=== PATIENT | male | born 1965 | race African-American/Black ===

== ENCOUNTER 2016-06-21 02:45 | Emergency (ER) | payer SELFPAY ==
[~2016-06-21] VITALS: Ht 185.4 cm; Wt 91.0 kg
[2016-06-21 02:46] VITALS: BP 142/93; PULSE 122; RESP 24; TEMP 98.8; O2SAT 96
[2016-06-21] MEDS ORDERED: SODIUM CHLOR 0.9% 1000 ML INJ 1,000 ML IV SCH (03:02)
[2016-06-21 03:12] VITALS: O2SAT 98
[2016-06-21] MEDS ORDERED: ONDANSETRON HCL 4 MG/2 ML VIAL IVP ONE (03:15)
[2016-06-21] MEDS ORDERED: SODIUM CHLORIDE 0.9% FLUSH 10 ML FLUSH IV FLUSH PRN (03:15)
[2016-06-21] MEDS ORDERED: MORPHINE SULFATE 8 MG/ML INJ IV PUSH ONE ×2 (03:15→04:45)
[2016-06-21 03:49] LABS: ALKALINE PHOSPHATASE 127 U/L (45-117); TOTAL BILIRUBIN ADULT 1.6 MG/DL (0.2-1.0)
[2016-06-21 03:51] LABS: AUTOMATED NEUTROPHIL # 4.5 TH/MM3 (1.8-7.7); BASOPHIL % 0.3 % (0.0-2.0); EOSINOPHIL % 0.1 % (0.0-4.0); HEMATOCRIT 39.7 % (39.0-51.0); LYMPH % 7.5 % (9.0-44.0); LYMPHOCYTE # 0.4 TH/MM3 (1.0-4.8); MEAN CELL VOLUME 73.3 FL (80.0-100.0); MEAN CORPUSCULAR HEMOGLOBIN 24.5 PG (27.0-34.0); MEAN CORPUSCULAR HGB CONC 33.4 % (32.0-36.0); MONO % 0.7 % (0.0-8.0); NEUT % 91.4 % (16.0-70.0); PLATELET COUNT 76 TH/MM3 (150-450); RED BLOOD COUNT 5.41 MIL/MM3 (4.50-5.90); RED CELL DISTRIBUTION WIDTH 14.3 % (11.6-17.2); WHITE BLOOD COUNT 4.9 TH/MM3 (4.0-11.0)
[2016-06-21 03:55] LABS: ALT (GPT) 101 U/L (12-78); ANION GAP 14 MEQ/L (5-15); AST (GOT) 365 U/L (15-37); BICARBONATE 19.2 MEQ/L (21.0-32.0); BLOOD UREA NITROGEN 19 MG/DL (7-18); CHLORIDE 97 MEQ/L (98-107); GLOMERULAR FILTRATION RATE 26 ML/MIN (>89); POTASSIUM 4.3 MEQ/L (3.5-5.1); SODIUM (NA) 130 MEQ/L (136-145)
[2016-06-21 04:16] LABS: HEMO FLAGS AUTO DIFF
--- NOTE | 2016-06-21 04:39 | RADRPT ---
EXAM DATE/TIME: 06/21/2016 04:17 [place] COMPARISON: No previous studies available for comparison. INDICATIONS : Acute renal insufficiency; abdominal pain. ORAL CONTRAST: No oral contrast ingested. RADIATION DOSE: 9.03 CTDIvol (mGy) MEDICAL HISTORY : None SURGICAL HISTORY : None. ENCOUNTER: Initial ACUITY: 1 day PAIN SCALE: 5/10 LOCATION: abdomen TECHNIQUE: Volumetric scanning of the abdomen and pelvis was performed. Using automated exposure control and ad justment of the mA and/or kV according to patient size, radiation dose was kept as low as reasonably achievable to obtain optimal diagnostic quality images. FINDINGS: Examination degraded by breathing motion artifact. LOWER LUNGS: The visualized lower lungs are clear. LIVER: Homogeneous density without lesion. There is no dilation of the biliary tree. No calcified gallston es. SPLEEN: Normal size without lesion. PANCREAS: Within normal limits. KIDNEYS: Normal in size and shape. There is no mass, stone, or hydronephrosis. There is mild stranding of the perinephric fat bilaterally. This is most pronounced within the upper pole on the left. No fluid col lections. ADRENAL GLANDS: Within normal limits. VASCULAR: There is no aortic aneurysm. BOWEL/MESENTERY: The stomach, small bowel, and colon demonstrate no acute abnormality. There is no free intraperitone al air or fluid. ABDOMINAL WALL: Within normal limits. RETROPERITONEUM: There is no lymphadenopathy. BLADDER: No wall thickening or mass. REPRODUCTIVE: Within normal limits. INGUINAL: There is no lymphadenopathy or hernia. MUSCULOSKELETAL: Within normal limits for patient age. CONCLUSION: 1. Breathing motion artifact degrades the exam. 2. Mild stranding of the perinephric fat most pronounced adjacent to the upper pole on the left. This may be chronic in nature from prior inflammation or infection. I cannot exclude an acute inflammator y process of the left kidney. No stones or hydronephrosis observed. Josh Hansen Jr., MD on June 21, 2016 at 4:33 Board Certified Radiologist. This report was verified electronically.
[2016-06-21 04:45] VITALS: BP 165/85; PULSE 102; RESP 18; O2SAT 98
[2016-06-21] MEDS ORDERED: ATROPINE SULFATE 1 MG/10 ML SYRINGE IV ONE (05:00)
[2016-06-21] MEDS ORDERED: SODIUM BICARBONATE 8.4% INJ 50 MEQ/50 ML SYR IV ONE ×2 (05:00)
[2016-06-21] MEDS ORDERED: EPINEPHrine HCL (1:10,000) 1 MG/10 ML SYRINGE IV ONE (05:00)
[2016-06-21] MEDS ORDERED: CALCIUM CHLORIDE 10% SOLN 1 GRAM/10 ML SYR IV ONE ×2 (05:00)
[2016-06-21] MEDS ORDERED: cefTRIAXone INJ 1,000 MG in SODIUM CHLORIDE 0.9% INJ 100 ML IV ONE (05:00)
[2016-06-21] MEDS ORDERED: DEXTROSE 50% IN WATER 50 ML SYRINGE IV ONE (05:00)
[2016-06-21] MEDS ORDERED: NALOXONE HCL 4 MG/10 ML MDV IV ONE ×2 (05:00)
[2016-06-21] MEDS ORDERED: NOREPINEPHRINE 4 MG/4 ML AMP ONE (05:02)
[2016-06-21] MEDS ORDERED: EPINEPHrine HCL (1:10,000) 1 MG/10 ML SYRINGE ONE ×2 (05:17→05:18)
[2016-06-21] MEDS ORDERED: VASOPRESSIN INJ 20 UNITS/ML VIAL ONE (05:22)
[2016-06-21 06:31] LABS: BLOOD GAS BASE EXCESS -8.2 mmol/L (-2-2); BLOOD GAS HCO3 20 mmol/L (22-26); BLOOD GAS METHEMOGLOBIN 0.7 % (0-2); BLOOD GAS O2 HGB SATURATION 98 % (90-100); BLOOD GAS OXYGEN CONTENT 15.6 Vol % (12.0-20.0); BLOOD GAS PCO2 64 mmHg (38-42); BLOOD GAS PO2 299 mmHG (61-120); BLOOD GAS TOTAL HGB 10.8 G/DL (12.0-16.0); TEMP CORR TO 98.6
[2016-06-21 06:32] LABS: CRITICAL VALUE YES
[2016-06-21 06:33] LABS: DRAW SITE LT FEMORAL; FIO2 100 %; NUMBER OF ARTERIAL PUNCTURES 1
--- NOTE | 2016-06-21 07:20 | PD ---
HPI Chief Complaint: GI Complaint Time Seen by Provider: 02:55 Travel History International Travel<30 days: No Contact w/Intl Traveler<30days: No Traveled to known affect area: No History of Present Illness HPI Patient's 51 years old. He arrives complaining of about 1 day of abdominal pain. He had 2 episodes of diarrhea. He has had no nausea vomiting or fever. Appetite is been decreased. He believes he may have had some bad food with the last oral intake having been crabs. He denies a past medical history no edema. He does not follow currently with a primary care provider. [facility] Past Medical History Medical History: Denies Significant Hx Influenza Vaccination: No Past Surgical History Surgical History: No Previous Surgery Social History Alcohol Use: Yes Tobacco Use: No Substance Use: Yes (marijuana ) Allergies-Medications (Allergen,Severity, Reaction): Coded Allergies: No Known Allergies (Unverified , 06/21/16) Reported Meds & Prescriptions Reported Meds & Active Scripts Active No Active Prescriptions or Reported Medications Review of Systems Except as stated in HPI: all other systems reviewed are Neg General / Constitutional: No: Fever, Chills Cardiovascular: No: Chest Pain or Discomfort Gastrointestinal: Positive: Diarrhea, Abdominal Pain, No: Nausea, Vomiting Physical Exam Narrative GENERAL: 51-year-old male pleasant well-nourished well-developed SKIN: Focused skin assessment warm/dry. HEAD: Atraumatic. Normocephalic. EYES: Pupils equal and round. No scleral icterus. No injection or drainage. ENT: No nasal bleeding or discharge. Mucous membranes pink and moist. NECK: Trachea midline. No JVD. CARDIOVASCULAR: Regular rate and rhythm. No murmur appreciated. RESPIRATORY: No accessory muscle use. Clear to auscultation. Breath sounds equal bilaterally. GASTROINTESTINAL: Soft. Minimal tenderness diffuse nonspecific. MUSCULOSKELETAL: No obvious deformities. No clubbing. No cyanosis. No edema. NEUROLOGICAL: Awake and alert. No obvious cranial nerve deficits. Motor grossly within normal limits. Normal speech. PSYCHIATRIC: Appropriate mood and affect; insight and judgment normal. Data Data Last Documented VS Vital signs normal Orders Complete Blood Count With Diff (06/21/16 03:02) Comprehensive Metabolic Panel (06/21/16 03:02) Lipase (06/21/16 03:02) Iv Access Insert/Monitor (06/21/16 03:02) Ecg Monitoring (06/21/16 03:02) Oximetry (06/21/16 03:02) Ondansetron Inj (Zofran Inj) (06/21/16 03:15) Sodium Chlor 0.9% 1000 Ml Inj (Ns 1000 M (06/21/16 03:02) Sodium Chloride 0.9% Flush (Ns Flush) (06/21/16 03:15) Morphine Inj (Morphine Inj) (06/21/16 03:15) Ct Abd/Pel W/O Iv Contrast (06/21/16 04:07) Morphine Inj (Morphine Inj) (06/21/16 04:45) Ceftriaxone Inj (Rocephin Inj) (06/21/16 05:00) Norepinephrine Inj (Levophed Inj) (06/21/16 05:02) Epinephrine (1:10,000) Inj (Epinephrine (06/21/16 05:17) Epinephrine (1:10,000) Inj (Epinephrine (06/21/16 05:18) Vasopressin Inj (Pitressin Inj) (06/21/16 05:22) Arterial Blood Gas (Abg) (06/21/16 05:29) Sodium Bicarbonate 8.4% Inj (Sodium Bica (06/21/16 05:00) Naloxone Inj (Narcan Inj) (06/21/16 05:00) Dextrose 50% In Lisa (Syr) Inj (D50w (Syr (06/21/16 05:00) Calcium Chloride Inj (Calcium Chloride I (06/21/16 05:00) Atropine Inj (Atropine Inj) (06/21/16 05:00) Calcium Chloride Inj (Calcium Chloride I (06/21/16 05:00) Dextrose 50% In Lisa (Syr) Inj (D50w (Syr (06/21/16 05:00) Epinephrine (1:10,000) Inj (Epinephrine (06/21/16 05:00) Naloxone Inj (Narcan Inj) (06/21/16 05:00) Sodium Bicarbonate 8.4% Inj (Sodium Bica (06/21/16 05:00) Labs MDM Medical Decision Making Medical Screen Exam Complete: Yes Emergency Medical Condition: Yes Differential Diagnosis Constipation, Gastritis, Acute Cholecystitis, Biliary Colic, Pancreatitis, SKY , Hepatitis, Bowel Obstruction, Cystitis, Mesenteric Ischemia, AAA, Appendicitis , Renal Stone/Hydronephrosis, GERD, perforated viscous Narrative Course CBC & BMP Diagram 06/21/16 03:17 06/21/16 03:40 Last 24 hours Impressions Abdomen/Pelvis CT 06/21/16 0407 Signed Impressions: Service Date/Time: Tuesday, June 21, 2016 04:17 - CONCLUSION: 1. Breathing motion artifact degrades the exam. 2. Mild stranding of the perinephric fat most pronounced adjacent to the upper pole on the left. This may be chronic in nature from prior inflammation or infection. I cannot exclude an acute inflammatory process of the left kidney. No stones or hydronephrosis observed. Josh Hansen Jr., MD Patient arrives with a tender abdomen and concern for left kidney infectious or inflammatory disease. He'll be admitted for IV antibiotics and IV fluids pain control. After receiving Zofran and morphine he reported some pain relief. About 2 hours later who requested additional pain medication and 5 mg of morphine was ordered. The case was discussed with the hospitalist service, Dr. Gutierrez. At 4:50 AM the patient's alarms sounded and he was found in his room seconds later facedown with no pulse. Chest compressions were immediately initiated. It over the subsequent 60 minutes a massive code ensued. Overall the chest compression fraction was at least 60% throughout the entirety of the resuscitative effort during times of asystole/pulselessness. The patient was intubated immediately with an 8-0 tube. At 5:00 AM the patient had a return of circulation. His blood pressure was 154/87. Levophed was initiated. At 5:15 pt lost pulses and CPR was resumed. The patient regained pulses at 5:28 and Levophed was initiated as well as vasopressin. Pulses were lost at 5:39 chest compressions were continued. At 5:50 AM patient remained pulseless. Johnson xiphoid view of the heart revealed asystole. 10 rounds of epinephrine were administered in total. 4 rounds of sodium bicarbonate were given. Patient received Narcan and calcium. Unexpectedly the FSG value was 18 approx 30 minutes into the code. BMP from 2 hours prior had a normal glucose and pt does not take insulin and has no hx diabetes. The patient received dextrose 50. Shortly after intubation while the patient had pulses a right femoral triple- lumen central line was placed. At 5:50 AM code was terminated. Etiology of arrest unclear. PE considered. Aspiration considered. Coronary event considered. CVA of concern. Critical Care Narrative Aggregate critical care time was 50 minutes. Time to perform other separately billable procedures was not included in the critical care time. My time did not include minutes spent treating any other patients simultaneously or on activities that did not directly contribute to the patient's treatment. The services I provided to this patient were to treat and/or prevent clinically significant deterioration that could result in: Expiration secondary to cardiopulmonary arrest I provided critical care services requiring my management, as noted below: Chart data review, documentation time, medication orders and management, vital sign assessments/reviewing monitor data, ordering and reviewing lab tests, ordering and interpreting/reviewing x-rays and diagnostic studies, care of the patient and discussion of the patient with the admitting physicians.Aggregate critical care Procedures Procedure Narrative After the risks and benefits were discussed the following procedure was performed: INTUBATION: The patient was put in optimal position for the procedure. The patient was intubated with a 8-0 cuffed endotracheal tube. Tube placement was confirmed by visualization of the tube and balloon passing through the cords, capnometry. Breath sounds were equal and well aerated bilaterally postintubation. No breath sounds over stomach. After the risks and benefits were discussed the following procedure was performed: INTUBATION: The patient was put in optimal position for the procedure. The patient was intubated with a 8-0 cuffed endotracheal tube. Tube placement was confirmed by visualization of the tube and balloon passing through the cords with the kaleidoscope, capnometry. Breath sounds were equal and well aerated bilaterally postintubation. No breath sounds over stomach. CENTRAL VENOUS LINE: The site was prepped with Betadine and sterilely draped. It was infiltrated with 1% lidocaine plain. The deep vein was cannulated using normal Seldinger technique. A 3 lumen central line was placed in the right femoral vein site and secured with simple interrupted suture. The site was sterilely dressed. The patient tolerated the procedure well. Diagnosis Primary Impression: Cardiopulmonary arrest Additional Instructions: Not applicable Med/Other Pt SpecificInfo: Other Scripts No Active Prescriptions or Reported Meds Disposition: 20 Condition: Josiah Lopes MD Jun 21, 2016 07:19 Arterial Blood pH 7.12 Arterial Blood Partial 64 mmHg Pressure CO2 Arterial Blood Partial 299 mmHG Pressure O2 Arterial Blood Oxygen Content 15.6 Vol % Arterial Blood 0.0 % Carboxyhemoglobin Arterial Blood Methemoglobin 0.7 % Blood Gas Hemoglobin 10.8 G/DL Blood Gas Inspired Oxygen 100 % MDM Medical Decision Making Medical Screen Exam Complete: Yes Emergency Medical Condition: Yes Differential Diagnosis Constipation, Gastritis, Acute Cholecystitis, Biliary Colic, Pancreatitis, SKY , Hepatitis, Bowel Obstruction, Cystitis, Mesenteric Ischemia, AAA, Appendicitis , Renal Stone/Hydronephrosis, GERD, perforated viscous Narrative Course CBC & BMP Diagram 06/21/16 03:17 06/21/16 03:40 Last 24 hours Impressions Abdomen/Pelvis CT 06/21/16 0407 Signed Impressions: Service Date/Time: Tuesday, June 21, 2016 04:17 - CONCLUSION: 1. Breathing motion artifact degrades the exam. 2. Mild stranding of the perinephric fat most pronounced adjacent to the upper pole on the left. This may be chronic in nature from prior inflammation or infection. I cannot exclude an acute inflammatory process of the left kidney. No stones or hydronephrosis observed. Josh Hansen Jr., MD Patient arrives with a tender abdomen and concern for left kidney infectious or inflammatory disease. He'll be admitted for IV antibiotics and IV fluids pain control. After receiving Zofran and morphine he reported some pain relief. About 2 hours later who requested additional pain medication and 5 mg of morphine was ordered. The case was discussed with the hospitalist service, Dr. Gutierrez. At 4:50 AM the patient's alarms sounded and he was found in his room seconds later facedown with no pulse. Chest compressions were immediately initiated. It over the subsequent 60 minutes a massive code ensued. Overall the chest compression fraction was at least 60% throughout the entirety of the resuscitative effort during times of asystole/pulselessness. The patient was intubated immediately thereafter with an 8-0 tube. At 5:00 AM the patient had a return of circulation. His blood pressure was 154/87. Levophed was initiated. At 5:15 pt lost pulses and CPR was resumed. The patient regained pulses at 5:28 and Levophed was initiated as well as vasopressin. Pulses were lost at 5:39 chest compressions were continued. At 5:50 AM patient remained pulseless. Johnson xiphoid view of the heart revealed asystole. 10 rounds of epinephrine were administered in total. 4 rounds of sodium bicarbonate were given. Patient received Narcan and calcium. Unexpectedly the FSG value was 18 approx 30 minutes into the code. BMP from 2 hours prior had a normal glucose and pt does not take insulin and has no hx diabetes. The patient received dextrose 50. Shortly after intubation while the patient had pulses a right femoral triple-lumen central line was placed. At 5:50 AM code was terminated. Etiology of arrest unclear. PE considered. Aspiration considered. Coronary event considered. CVA of concern. Critical Care Narrative Aggregate critical care time was 50 minutes. Time to perform other separately billable procedures was not included in the critical care time. My time did not include minutes spent treating any other patients simultaneously or on activities that did not directly contribute to the patient's treatment. The services I provided to this patient were to treat and/or prevent clinically significant deterioration that could result in: Expiration secondary to cardiopulmonary arrest I provided critical care services requiring my management, as noted below: Chart data review, documentation time, medication orders and management, vital sign assessments/reviewing monitor data, ordering and reviewing lab tests, ordering and interpreting/reviewing x-rays and diagnostic studies, care of the patient and discussion of the patient with the admitting physicians.Aggregate critical care Procedures Procedure Narrative After the risks and benefits were discussed the following procedure was performed: INTUBATION: The patient was put in optimal position for the procedure. The patient was intubated with a 8-0 cuffed endotracheal tube. Tube placement was confirmed by visualization of the tube and balloon passing through the cords, capnometry. Breath sounds were equal and well aerated bilaterally postintubation. No breath sounds over stomach. After the risks and benefits were discussed the following procedure was performed: INTUBATION: The patient was put in optimal position for the procedure. The patient was intubated with a 8-0 cuffed endotracheal tube. Tube placement was confirmed by visualization of the tube and balloon passing through the cords with the kaleidoscope, capnometry. Breath sounds were equal and well aerated bilaterally postintubation. No breath sounds over stomach. CENTRAL VENOUS LINE: The site was prepped with Betadine and sterilely draped. It was infiltrated with 1% lidocaine plain. The deep vein was cannulated using normal Seldinger technique. A 3 lumen central line was placed in the right femoral vein site and secured with simple interrupted suture. The site was sterilely dressed. The patient tolerated the procedure well. Diagnosis Primary Impression: Cardiopulmonary arrest Additional Instructions: Not applicable Med/Other Pt SpecificInfo: Other Scripts No Active Prescriptions or Reported Meds Disposition: 20 Condition: Josiah Lopes MD Jun 21, 2016 07:19
[2016-06-21 07:59] LABS: BANDS 18 % (0-6); CORRECTED NUCLEATED RBC 1 /100 WBC (0-0); NEUTROPHIL # MANUAL DIFF 4.4 TH/MM3 (1.8-7.7); PLATELET ESTIMATE SMEAR LOW (NORMAL); PLATELET MORPHOLOGY HYPOGRAN (NORMAL); POLYS (SEG NEUTROPHILS) 72 % (16-70); SCAN/DIFF FINAL DIFF MANUAL; WBC DIFF SAMPLE 100
[2016-06-21 08:00] LABS: TOXIC VACUOLATION PRESENT (NONE SEEN)
[2016-06-22 11:11] LABS: STAT YES
== END 2016-06-21 09:17 | disposition expired ==
LOC: NEPE 02:45 → NEPI 09:17
DX: I46.9 Cardiac arrest, cause unspecified (principal); R10.9 Unspecified abdominal pain; R19.7 Diarrhea, unspecified
CPT/HCPCS: 31500; 36556; 36600; 74176; 80053; 82805; 83690; 85007; 85027; 92950; 96361; 96374; 96375; 96376; 99285; J0171; J0461; J2270; J2310; J2405; J7030